=== PATIENT | male | born 1940 | race Caucasian/White ===

== ENCOUNTER 2016-12-15 11:15 | Outpatient (RCR) | payer MEDICARE, BC ==
[~2016-12-15 11:15] MED LIST: CIPRO500 MG PO; NORCO 325 MG-51 TAB PO; PERCOCET 325 MG1 TA2 PO; ZOCOR 10MG10 MG PO
== END 2016-12-21 | disposition home or self-care (01) ==
LOC: WSPT
DX: G20 Parkinson's disease (principal); G25.2 Other specified forms of tremor
CPT/HCPCS: G8978-GP; G8979-GP

== ENCOUNTER 2017-02-11 14:00 | Outpatient (RCR) | payer MEDICARE, BC | END 2017-02-12 10:46 | disposition home or self-care (01) | LOC: WSPT 14:00 | DX: G20 Parkinson's disease (principal) | CPT/HCPCS: G8979-GP; G8980-GP ==

== ENCOUNTER 2017-04-14 12:40 | Inpatient (IN) | payer MEDICARE, BC ==
[~2017-04-14] VITALS: Ht 184.8 cm; Wt 109.6 kg
[2017-05-23] MEDS ORDERED: ASPIRIN E.C. 8181 MG PO (09:50)
[2017-05-23] MEDS ORDERED: MASON NATURAL2000 IU PO (09:51)
[2017-05-23] MEDS ORDERED: VITAMIN C500 MG PO (09:52)
[2017-05-23] MEDS ORDERED: OMEGA-3 FISH1000 MG PO (09:52)
[2017-05-23] MEDS ORDERED: B-12 500 MCG PO (09:53)
[2017-05-23] MEDS ORDERED: SINEMET 25/101 UDTAB PO (09:53)
[2017-05-24] VITALS (11 sets, daily range): BP systolic 105–145; BP diastolic 49–84; PULSE 52–80; TEMP 97.8–98.2
[2017-05-25] VITALS: BP 158/77; PULSE 81; TEMP 97.8
[2017-05-25 04:46] VITALS: BP 133/74; PULSE 69; TEMP 98.2
[2017-05-25] MEDS ORDERED: XARELTO10 MG PO (06:21)
[2017-05-25] MEDS ORDERED: NORCO 325 MG-7.1 TAB PO (06:22)
[2017-05-25] MEDS ORDERED: CELEBREX 200MG200 MG PO (06:22)
[2017-05-25] MEDS ORDERED: ULTRAM 50MG TAB50 MG PO (06:22)
[2017-05-25 06:33] LABS: HEMATOCRIT 28.6 % (42.0-52.0); HEMOGLOBIN 9.9 g/dl (13.5-18.0)
[2017-05-25 07:47] VITALS: BP 135/62; PULSE 68; TEMP 97.6
[2017-05-25 11:18] VITALS: BP 103/53; PULSE 63
[2017-05-25 16:14] VITALS: BP 107/59; PULSE 75; TEMP 97.5
[2017-05-25 19:45] VITALS: BP 107/59; PULSE 62; TEMP 97.5
[2017-05-26 04:23] VITALS: BP 100/56; PULSE 63; TEMP 97.6
[2017-05-26 06:56] LABS: HEMATOCRIT 26.1 % (42.0-52.0); HEMOGLOBIN 8.8 g/dl (13.5-18.0)
[2017-05-26 07:33] VITALS: BP 118/54; PULSE 69; TEMP 99.4
[2017-05-26 11:53] VITALS: BP 108/57; PULSE 73; TEMP 98.3
[2017-05-26 15:39] VITALS: BP 102/49; PULSE 69; TEMP 97.9
[2017-05-26 19:56] VITALS: BP 104/49; PULSE 74; TEMP 98.4
[2017-05-27 04:03] VITALS: BP 94/54; PULSE 66; TEMP 98.7
[2017-05-27 07:13] VITALS: BP 116/67; PULSE 70; TEMP 99.3
== END 2017-05-27 10:40 | DRG 470 ==
LOC: JCC 05-24 05:24
PROVIDERS: Orthopaedic Surgery
PROC: 0SRD0J9 Replacement of Left Knee Joint with Synthetic Substitute, Cemented, Open Approach (ICD-10-PCS; principal; 2017-05-24 07:30)
DX: M17.12 Unilateral primary osteoarthritis, left knee (principal); Z96.651 Presence of right artificial knee joint
CPT/HCPCS: A4315; A9284; C1713; C1776; J0690; J1100; J1200; J1885; J2250; J2270; J2405; J2704; J3010; J7120

== ENCOUNTER → 2017-04-19 | Outpatient (CLI) | payer MEDICARE, BC ==
[~2017-04-19] MED LIST changes: +ASPIRIN E.C. 8181 MG PO; +B-12 500 MCG PO; +CELEBREX 200MG200 MG PO; +MASON NATURAL2000 IU PO; +NORCO 325 MG-7.1 TAB PO; +OMEGA-3 FISH1000 MG PO; +SINEMET 25/101 UDTAB PO; +ULTRAM 50MG TAB50 MG PO; +VITAMIN C500 MG PO; +XARELTO10 MG PO
== END ==
LOC: COL.RAD 08:15
DX: M17.12 Unilateral primary osteoarthritis, left knee (principal); Z96.652 Presence of left artificial knee joint

== ENCOUNTER 2017-05-21 09:51 | Outpatient (RCR) | payer MEDICARE, BC ==
[~2017-05-21 09:51] MED LIST changes: -ASPIRIN E.C. 8181 MG PO; -B-12 500 MCG PO; -CELEBREX 200MG200 MG PO; -MASON NATURAL2000 IU PO; -NORCO 325 MG-7.1 TAB PO; -OMEGA-3 FISH1000 MG PO; -SINEMET 25/101 UDTAB PO; -ULTRAM 50MG TAB50 MG PO; -VITAMIN C500 MG PO; -XARELTO10 MG PO
[2017-05-23] MEDS ORDERED: ASPIRIN E.C. 8181 MG PO (09:50)
[2017-05-23] MEDS ORDERED: MASON NATURAL2000 IU PO (09:51)
[2017-05-23] MEDS ORDERED: VITAMIN C500 MG PO (09:52)
[2017-05-23] MEDS ORDERED: OMEGA-3 FISH1000 MG PO (09:52)
[2017-05-23] MEDS ORDERED: B-12 500 MCG PO (09:53)
[2017-05-23] MEDS ORDERED: SINEMET 25/101 UDTAB PO (09:53)
[2017-05-25] MEDS ORDERED: XARELTO10 MG PO (06:21)
[2017-05-25] MEDS ORDERED: CELEBREX 200MG200 MG PO (06:22)
[2017-05-25] MEDS ORDERED: NORCO 325 MG-7.1 TAB PO (06:22)
[2017-05-25] MEDS ORDERED: ULTRAM 50MG TAB50 MG PO (06:22)
== END 2017-05-27 13:55 | disposition home or self-care (01) ==
LOC: WSPT 09:51
DX: Z01.818 Encounter for other preprocedural examination (principal); M17.12 Unilateral primary osteoarthritis, left knee
CPT/HCPCS: G8978-GP; G8979-GP; G8980-GP

== ENCOUNTER 2017-08-04 10:30 | Outpatient (RCR) | payer MEDICARE, BC ==
[~2017-08-04 10:30] MED LIST changes: +ASPIRIN E.C. 8181 MG PO; +B-12 500 MCG PO; +CELEBREX 200MG200 MG PO; +MASON NATURAL2000 IU PO; +NORCO 325 MG-7.1 TAB PO; +OMEGA-3 FISH1000 MG PO; +SINEMET 25/101 UDTAB PO; +ULTRAM 50MG TAB50 MG PO; +VITAMIN C500 MG PO; +XARELTO10 MG PO
== END 2017-08-05 16:03 ==
LOC: WSPT 10:30
DX: Z96.652 Presence of left artificial knee joint (principal)
CPT/HCPCS: G8978-GP; G8979-GP; G8980-GP

== ENCOUNTER → 2018-01-03 | Outpatient (CLI) | payer MEDICARE, BC ==
[~2018-01-03] VITALS: Ht 184.8 cm; Wt 107.7 kg
[~2018-01-03] MED LIST changes: +NEURONTIN100 MG/CAP PO; +STOOL SOFTENER100 M2 PO
[2018-01-03 12:59] VITALS: BP 140/82; PULSE 95
[2018-01-03 14:42] VITALS: BP 126/76; PULSE 63
== END ==
LOC: COL.RAD 12:30
DX: M47.26 Other spondylosis with radiculopathy, lumbar region (principal); M48.061 Spinal stenosis, lumbar region without neurogenic claudication
CPT/HCPCS: G9654; J2704

== ENCOUNTER 2018-02-02 10:45 | Outpatient (RCR) | payer MEDICARE, BC | END 2018-02-07 08:52 | disposition home or self-care (01) | LOC: MKS.ESL.PT 10:45 | DX: G62.9 Polyneuropathy, unspecified (principal); M54.17 Radiculopathy, lumbosacral region; R20.0 Anesthesia of skin; R20.2 Paresthesia of skin; Z96.652 Presence of left artificial knee joint | CPT/HCPCS: G8978-GP; G8979-GP; G8980-GP ==

== ENCOUNTER → 2018-02-08 | Outpatient (CLI) | payer MEDICARE, BC | LOC: MHCPAIN 12:21 | DX: G89.29 Other chronic pain (principal); M47.817 Spondylosis without myelopathy or radiculopathy, lumbosacral region; M54.16 Radiculopathy, lumbar region; M48.061 Spinal stenosis, lumbar region without neurogenic claudication | CPT/HCPCS: G0463 ==

== ENCOUNTER 2018-02-11 08:00 | Outpatient (RCR) | payer BC | END 2018-05-12 | disposition home or self-care (01) | LOC: MKS.ESL.PT | DX: G60.8 Other hereditary and idiopathic neuropathies (principal) ==

== ENCOUNTER → 2018-02-24 | Outpatient (CLI) | payer MEDICARE, BC | LOC: MHCPAIN 12:25 | DX: M47.27 Other spondylosis with radiculopathy, lumbosacral region (principal) | CPT/HCPCS: J1100; J2405; J3010; Q9967 ==

== ENCOUNTER 2018-03-01 10:30 | Outpatient (RCR) | payer MEDICARE, BC | END 2018-05-12 | disposition home or self-care (01) | LOC: MKS.ESL.PT | DX: G60.8 Other hereditary and idiopathic neuropathies (principal) | CPT/HCPCS: G8990-GP; G8991-GP; G8992-GP ==

== ENCOUNTER → 2018-03-09 | Outpatient (CLI) | payer MEDICARE, BC | LOC: MHCPAIN 09:58 | DX: G89.29 Other chronic pain (principal); M47.817 Spondylosis without myelopathy or radiculopathy, lumbosacral region; M48.061 Spinal stenosis, lumbar region without neurogenic claudication; M25.572 Pain in left ankle and joints of left foot | CPT/HCPCS: G0463 ==

== ENCOUNTER 2019-04-11 02:33 | Observation (INO) | payer MEDICARE, BC ==
[~2019-04-11] VITALS: Ht 182.9 cm; Wt 102.3 kg
[2019-04-11 05:10] LABS: COLLECTION METHOD CLEAN CATCH
[2019-04-11 05:16] LABS: MUCOUS Present /lpf; PH 5 (5-8); SQUAMOUS EPITHELIAL 0-2 /hpf; URINE APPEARANCE Clear; URINE BACTERIA None Seen /hpf; URINE BILIRUBIN Negative (NEGATIVE); URINE BLOOD 2+ (NEGATIVE); URINE COLOR Yellow; URINE GLUCOSE Negative (NEGATIVE); URINE KETONE Negative (NEGATIVE); URINE LEUKOCYTE ESTERASE Negative (NEGATIVE); URINE NITRATE Negative (NEGATIVE); URINE PROTEIN(semi-quant) Negative (NEGATIVE); URINE UROBILINOGEN Negative (NEGATIVE)
[2019-04-11 05:25] LABS: BASO % 0.3 % (0.0-2.0); EOS # 0.1 (0.0-0.7); EOS % 1.3 % (0-4.0); GRAN % 76.5 % (42.2-75.2); HEMOGLOBIN 12.3 g/dl (13.5-18.0); LYMPH % 13.2 % (20.0-51.0); MEAN CELL VOLUME 91 fl (80.0-100.0); MEAN CORPUSCULAR HEMOGLOBIN 31 pg (27.0-31.0); MEAN CORPUSCULAR HGB CONC 34 g/dl (33.0-37.0); MEAN PLATELET VOLUME 9.7 fl (7.4-10.4); MONO # 0.6 (0.1-0.6); MONO % 8.2 % (1.7-9.3); PLATELET COUNT 124 K/mm3 (130-400); RED BLOOD COUNT 4.02 M/mm3 (4.20-5.60); REDCELL DISTRIBUTION WIDTH-CV 13.7 % (11.5-14.5)
[2019-04-11 05:26] LABS: HEMATOCRIT 36.4 % (42.0-52.0)
[2019-04-11 05:40] LABS: BILIRUBIN,TOTAL 0.7 mg/dL (0.0-1.0); CALCIUM 9.5 mg/dL (8.4-10.2); CREATININE, serum 0.77 (0.66-1.25); POTASSIUM 3.9 mmol/L (3.4-5.0)
[2019-04-11 06:06] VITALS: BP 149/71; PULSE 73; TEMP 98.2
--- NOTE | 2019-04-11 06:20 | NUR ---
Admitted to medical floor from ER- VSS, alert/oriented- states back pain 04/03-was just given 2 [place] in ER before arriving on floor- INT to left hand. O2 at 2L/nc.
[2019-04-11 08:34] VITALS: BP 117/72; PULSE 58; TEMP 97.6
--- NOTE | 2019-04-11 11:12 | NUR ---
SW attended clinical rounds to discuss discharge planning. Patient lives at home with his . Patient's PCP is Dr Barroso and he obtains prescriptions from [facility]. Patient uses a cane PRN and he does not use home health services. Patient does have a DPOA. Patient will be seen by PT and OT. Patient will likely require home health services upon discharge. SW will follow up with patient about home health options after he is seen by PT and OT.
[2019-04-11 12:56] VITALS: BP 120/90; PULSE 68; TEMP 98.4
--- NOTE | 2019-04-11 14:31 | NUR ---
SW met with patient about home health options. SW provided medicare.gov resource list. Patient chose [facility]. SW will fax referral.
--- NOTE | 2019-04-11 15:09 | NUR ---
Pt resting, has been up in the recliner and returned to bed, Pt needs stand-by assistance to the restroom, not completly steady on his feet and has C/O weakness. Pt has received both PRN norco and flexeril for pain and spasm relief. Initial assessments complete.
[2019-04-11 16:32] VITALS: BP 128/70; PULSE 62; TEMP 97.6
--- NOTE | 2019-04-11 17:55 | NUR ---
Pt has been resting in the room, has C/O pain that is minimally relieved with ordered pain and muscle relaxant medications, Pt has been up to the restroom during the day with minimal assistance.
--- NOTE | 2019-04-11 19:30 | NUR ---
Shift assessment complete. Pt in bedside recliner et assisted to back to bed at this time. Pt awake, a&o, cooperative c cares. Pt c/o continued back pain rated "8/10"; provided c PRN Bethel et Flexeril per pt/wi request. Pt denies other needs. INT patent. Call light in reach, bed alarm on. Will monitor.
[2019-04-11 19:42] VITALS: BP 106/52; PULSE 74; TEMP 97.7
[2019-04-11] MEDS ORDERED: ATIVAN 0.50.5 MG/TAB PO (22:46)
[2019-04-11] MEDS ORDERED: AMBIEN 10MG10 MG PO (22:47)
[2019-04-11] MEDS ORDERED: ATROPINE 2 ML2 ML PO (22:59)
[2019-04-11] MEDS ORDERED: ZOLOFT 50MG50 MG PO (22:59)
[2019-04-11] MEDS ORDERED: NEUPRO1 MG/24 HR TD (23:01)
[2019-04-11] MEDS ORDERED: RYTARY1 CE2 PO (23:02)
[2019-04-11 23:39] VITALS: BP 117/64; PULSE 65; TEMP 98.4
[2019-04-12 02:55] VITALS: BP 132/81; PULSE 54; TEMP 97.5
--- NOTE | 2019-04-12 05:32 | NUR ---
Pt resting in bed, condition unchanged. Pt has had cont c/o back pain int this shift. Moderately well controlled c current medications. Pt has amb in room et to BR c min assist. No needs at this time. Call light in reach.
--- NOTE | 2019-04-12 06:45 | NUR ---
Received report from JAMES Queen.
[2019-04-12 07:15] VITALS: BP 107/63; PULSE 59; TEMP 97.4
--- NOTE | 2019-04-12 08:33 | NUR ---
Pt sitting up in recliner, some C/O lower back pain, shift assessments complete, left Pt call light in reach.
--- NOTE | 2019-04-12 09:30 | NUR ---
Patient will discharge home today with home health services through [facility] (PT, OT, and fci). SW will fax discharge orders.
[2019-04-12] MEDS ORDERED: COLACE 100100 MG/CAP PO (09:48)
[2019-04-12] MEDS ORDERED: VITAMIN C500 MG PO (09:49)
[2019-04-12] MEDS ORDERED: NORCO 325 MG-51 TAB PO (09:56)
[2019-04-12] MEDS ORDERED: TYLENOL 500MG500 MG PO (09:56)
--- NOTE | 2019-04-12 12:30 | NUR ---
Pt discharged to home, escorted to [place] emergency department and transported by private auto.
== END 2019-04-12 12:30 | disposition home or self-care (01) ==
LOC: COL.ER 02:33 → MEDICAL 05:05
PROVIDERS: Emergency Medicine; ADMIT Internal Medicine
DX: R53.81 Other malaise (principal); M54.5 Low back pain; G20 Parkinson's disease; F32.9 Major depressive disorder, single episode, unspecified; Z96.653 Presence of artificial knee joint, bilateral; Z85.72 Personal history of non-Hodgkin lymphomas
CPT/HCPCS: 99239; G0378; J3010

== ENCOUNTER 2019-06-06 07:50 | Day surgery (SDC) | payer MEDICARE, BC ==
[~2019-06-06] VITALS: Ht 182.9 cm; Wt 95.5 kg
[~2019-06-06 07:50] MED LIST changes: +AMBIEN 10MG10 MG PO; +ATIVAN 0.50.5 MG/TAB PO; +ATROPINE 2 ML2 ML PO; +COLACE 100100 MG/CAP PO; +NEUPRO1 MG/24 HR TD; +RYTARY1 CE2 PO; +TYLENOL 500MG500 MG PO; +ZOLOFT 50MG50 MG PO
[2019-06-06] MEDS ORDERED: SINEMET 25/101 UDTAB PO (08:40)
[2019-06-06 08:56] VITALS: BP 127/80; PULSE 78; TEMP 98.8
[2019-06-06 09:50] VITALS: BP 130/88; PULSE 88; TEMP 98.4
--- NOTE | 2019-06-06 10:00 | NUR ---
Pt returned via cart to GI bay 4. Pt drowsy but able to ambulate to recliner in bay. Jurgen from Radiology present to take pt for BE procedure since the colonoscopy was unsuccessful. VSS-see flowsheet. Pt taken via wheelchair at this time to radiology by Jurgen.
--- NOTE | 2019-06-06 11:05 | NUR ---
Pt returned with Rad staff Jurgen, via wheelchair. A&O. To void then returned to recliner. present. Pt given cup of coffee per request. Denied complaints or other needs.
[2019-06-06 11:20] VITALS: BP 136/96; PULSE 88
--- NOTE | 2019-06-06 12:00 | NUR ---
Pt was up to bathroom numerous times since procedure. Given personal cleansing wipes and a brief for comfort. Discharge teaching completed, pt and verbalized understanding. Pt taken via wheelchair to private vehicle for dc home with to drive. Sent with dc instruction packet.
== END 2019-06-06 12:00 | disposition home or self-care (01) ==
LOC: SDCO 07:50
DX: K57.30 Diverticulosis of large intestine without perforation or abscess without bleeding (principal); K64.0 First degree hemorrhoids; G20 Parkinson's disease; G62.9 Polyneuropathy, unspecified; M19.90 Unspecified osteoarthritis, unspecified site; Z96.652 Presence of left artificial knee joint; Z86.010 Personal history of colon polyps; Z80.0 Family history of malignant neoplasm of digestive organs
CPT/HCPCS: J2001; J2250; J2704; J7030

== ENCOUNTER → 2019-09-18 | Outpatient (CLI) | payer MEDICARE, BC ==
[~2019-09-18] MED LIST changes: +ASPIRIN 81M81 MG/TA2 PO; +LIPITOR 40MG TA40 MG PO
== END ==
LOC: COL.VAS 09:00
DX: I34.0 Nonrheumatic mitral (valve) insufficiency (principal); R60.9 Edema, unspecified; I51.7 Cardiomegaly

== ENCOUNTER 2021-01-10 09:23 | Inpatient (IN) | payer MEDICARE, BC ==
[~2021-01-10] VITALS: Ht 185.4 cm; Wt 85.5 kg
[~2021-01-10 09:23] MED LIST changes: -ATROPINE 2 ML2 ML PO; +ATROPINE 2 ML2 ML SL
[2021-01-10] MEDS ORDERED: EFFEXOR 75M75 MG/TAB PO (11:51)
[2021-01-10 13:45] VITALS: BP 111/64; PULSE 81; TEMP 97.9
[2021-01-10 15:44] VITALS: BP 111/66; PULSE 82; TEMP 97.6
--- NOTE | 2021-01-10 18:32 | NUR ---
Patient doing well since up from ER. Spouse at bedside. Head lac with estuardo intact, having minimal bloody drainage. Patient up to recliner this afternoon with x1 assist. Family and patient oriented to visitor policy. Ativan given this afternoon for agitation. Tele in place. INT to left hand. Lidocain patch to lower back. Denies further needs at this time. Will report off to night warehouse manager.
[2021-01-10 21:15] VITALS: BP 93/63; PULSE 67; TEMP 97.5
--- NOTE | 2021-01-10 23:02 | NUR ---
PT SETTING UP IN BED EATING DINNER AT SHIFT CHANGE. PT HAS [place] AND NEEDED MINIM ASST TO SET UP. REMAINED AT BEDSIDE UNTIL VISIT HOURS OVER. REPORTS BACK/LEG PAIN. NORCO GAVE. ALONG W PRN ATIVAN FOR AGGITATION INCREASED MORE AT NIGHT PER . WANTS LIGHT UP. DOOR OPEN. BED ALARMED.
[2021-01-11] VITALS (8 sets, daily range): BP systolic 86–134; BP diastolic 57–81; PULSE 63–98; TEMP 97.3–98.1
--- NOTE | 2021-01-11 04:56 | NUR ---
pt restless overnight often will need to void using urinal but dribbles scant to small each time. tx pain and aniexty x 2 overnight. Wants to set up on bed and let feet dangle. Done while in room yet pt is a fall risk. Light w in reach and bed alarm exit on. Breif dry, oral care and repositioned this am.
[2021-01-11 05:57] LABS: HEMATOCRIT 37.9 % (42.0-52.0); HEMOGLOBIN 12.7 g/dl (13.5-18.0); MEAN CELL VOLUME 91 fl (80.0-100.0); MEAN CORPUSCULAR HEMOGLOBIN 31 pg (27.0-31.0); MEAN CORPUSCULAR HGB CONC 34 g/dl (33.0-37.0); MEAN PLATELET VOLUME 11.2 fl (7.4-10.4); PLATELET COUNT 128 K/mm3 (130-400); RED BLOOD COUNT 4.17 M/mm3 (4.20-5.60); REDCELL DISTRIBUTION WIDTH-CV 13.3 % (11.5-14.5)
[2021-01-11 06:03] LABS: CALCIUM 9.4 mg/dL (8.4-10.2); CREATININE, serum 0.8 (0.66-1.25)
--- NOTE | 2021-01-11 11:07 | NUR ---
Assessment complete. Patient laying in bed with eyes closed. While speaking to patient he states "please dont speak so loudly". Patient was responsive to all my questions and took his PO medications well with sips of water. Patient was repositioned multiple times in order to make him comfortable. IV site is CD&I. Patient was oriented to place, self, and month but not the year. Fall precautions are in place. Continuing to monitor. Call light is in reach.
[2021-01-11 12:30] LABS: MAGNESIUM 1.8 mg/dL (1.6-2.3)
[2021-01-11 13:02] LABS: TSH w REFLEX 1.76 uIU/mL (0.465-4.680)
[2021-01-11 14:43] LABS: INR 1.1 (0.8-3.0); PROTHROMBIN TIME 12.7 SECONDS (9.7-12.8)
[2021-01-11 14:46] LABS: PARTIAL THROMBOPLASTIN TIME 29.1 SECONDS (26.0-37.0)
[2021-01-11 14:46] LABS: COLLECTION METHOD CLEAN CATCH
--- NOTE | 2021-01-11 15:00 | NUR ---
Plan home vs SNF [facility]. [facility] has accepted patient. SW met with about care. reports that they reside independently and have skilled care coming in the home MWF and alternate services on wednesday and . reports that she would prefer patient to b home however he has had a recent fall and concerned with car support. is Ramona [phone] or [phone]. indicated that she has the DPOA PPW, Will need a copy. Patient is reported to use a lift chair, urinal, walker sit to stand and 02 from breath easy, O2 liters unknown. Dr. Cortés is alternate specialist. Awaiting PT/OT/ RT for assessments to send to [facility]. Spoke with Nilesh Villar at [facility] and Patient is accepted for a skilled stay. Will need to continue to send updates until DC.
[2021-01-11 15:06] LABS: MUCOUS Present /lpf; PH 5 (5-8); SQUAMOUS EPITHELIAL 0-2 /hpf; URINE APPEARANCE Hazy; URINE BACTERIA None Seen /hpf; URINE BILIRUBIN Negative (NEGATIVE); URINE BLOOD Negative (NEGATIVE); URINE COLOR Yellow; URINE GLUCOSE Negative (NEGATIVE); URINE KETONE Trace (NEGATIVE); URINE LEUKOCYTE ESTERASE Negative (NEGATIVE); URINE NITRATE Negative (NEGATIVE); URINE PROTEIN(semi-quant) Negative (NEGATIVE)
--- NOTE | 2021-01-11 17:51 | NUR ---
Patient has had an uneventful shift. He slept most of he day, was at the bed side concerned due to his drowsiness. Patient is now awake nd alert and is at ease. Patient is sitting up eating dinner with the help of his at this time. Patient used the urinal to void through the day with no issues. Heparin drip has been initiated and is currently running at 15.5 ml/hr per protocol. Continuing to monitor patient. Call light is in reach. Bed alarm is set.
--- NOTE | 2021-01-11 22:01 | NUR ---
HEPARIN DRIP STOPPED AT THIS TIME DUE TO HEP XA LEVEL 1.24
[2021-01-12] VITALS (7 sets, daily range): BP systolic 87–118; BP diastolic 56–72; PULSE 62–91; TEMP 97.5–97.8
--- NOTE | 2021-01-12 00:51 | NUR ---
HEPARIN DRIP RESTARTED AT THIS TIME
[2021-01-12 07:05] LABS: BASO % 0.6 % (0.0-2.0); EOS # 0.1 (0.0-0.7); GRAN # 2.9 (1.4-6.5); GRAN % 57.1 % (42.2-75.2); HEMOGLOBIN 12.2 g/dl (13.5-18.0); LYMPH # 1.6 (1.2-3.4); LYMPH % 30.6 % (20.0-51.0); MEAN CELL VOLUME 90 fl (80.0-100.0); MEAN CORPUSCULAR HEMOGLOBIN 30 pg (27.0-31.0); MEAN CORPUSCULAR HGB CONC 33 g/dl (33.0-37.0); MEAN PLATELET VOLUME 10.9 fl (7.4-10.4); MONO # 0.5 (0.1-0.6); MONO % 9.7 % (1.7-9.3); PLATELET COUNT 131 K/mm3 (130-400); RED BLOOD COUNT 4.05 M/mm3 (4.20-5.60); REDCELL DISTRIBUTION WIDTH-CV 13.2 % (11.5-14.5)
[2021-01-12 07:08] LABS: HEMATOCRIT 36.5 % (42.0-52.0)
[2021-01-12 07:12] LABS: CALCIUM 9.5 mg/dL (8.4-10.2); CREATININE, serum 0.83 (0.66-1.25); MAGNESIUM 1.7 mg/dL (1.6-2.3); POTASSIUM 4.2 mmol/L (3.4-5.0)
--- NOTE | 2021-01-12 08:06 | NUR ---
Assessment complete. Patient awake on entry requesting to use the urinal, urinal provided pt voided approx 50ml. Patient states that he is miserable at this time, pain pill offered, pt states he would like it. PRN norco provided. Patient was repositioned , lidocaine patch applied to lower back. IV site infusing without issue, minor leakage of blood, site was undressed, cleaned and redressed at this time. Patient was assisted with ordering breakfast. Patient is now resting. Will continue to monitor. Call light is in reach. Bed alarm is set.
--- NOTE | 2021-01-12 08:37 | NUR ---
External male catheter applied to pt at this time in an effort to help with frequent small amounts of urination. Patient agreed and tolerated application well. PAtient no resting.
--- NOTE | 2021-01-12 11:32 | NUR ---
Records updates were faxed to [facility]. Abimbola requested a TLSO back brace be ordered for patient and it was done through [facility] previously. SW contacted [facility] for specific information needed for a script. Information was given to Abimbola who wrote the script for this SW. Script was faxed to [facility]. ([phone]). Fred did not have oxidation engineer opttion. Please follow up Saturday 01/13.
--- NOTE | 2021-01-12 17:42 | NUR ---
Patient has had a good shift. No complaints of pain or discomfort since this morning. PAtient has been repositioned multiple times which helps to keep him comfortable. Head lac remains CD&I at this time, open to air, estuardo in place. Strickland catheter in place draining clear yellow urine at this time. Continuing to monitor. Call light is in reach.
--- NOTE | 2021-01-12 20:40 | NUR ---
Assessment complete. Pt is alert but conversationally confused. Denies having any pain at this time. Pt is sitting up in the bed watching TV and he denies further needs. Call light within reach.
[2021-01-13 03:51] VITALS: BP 111/76; PULSE 78; TEMP 97.6
[2021-01-13 06:17] LABS: BASO % 0.3 % (0.0-2.0); EOS # 0.1 (0.0-0.7); EOS % 1.6 % (0-4.0); GRAN # 4.4 (1.4-6.5); GRAN % 68.9 % (42.2-75.2); HEMOGLOBIN 12.2 g/dl (13.5-18.0); LYMPH # 1.3 (1.2-3.4); LYMPH % 19.5 % (20.0-51.0); MEAN CELL VOLUME 90 fl (80.0-100.0); MEAN CORPUSCULAR HEMOGLOBIN 31 pg (27.0-31.0); MEAN CORPUSCULAR HGB CONC 34 g/dl (33.0-37.0); MEAN PLATELET VOLUME 11.7 fl (7.4-10.4); MONO # 0.6 (0.1-0.6); MONO % 9.4 % (1.7-9.3); PLATELET COUNT 116 K/mm3 (130-400); RED BLOOD COUNT 3.99 M/mm3 (4.20-5.60); REDCELL DISTRIBUTION WIDTH-CV 13.2 % (11.5-14.5)
[2021-01-13 06:25] LABS: CALCIUM 9.3 mg/dL (8.4-10.2); CREATININE, serum 0.81 (0.66-1.25); POTASSIUM 3.9 mmol/L (3.4-5.0)
[2021-01-13 07:53] VITALS: BP 99/67; PULSE 81; TEMP 97.8
--- NOTE | 2021-01-13 10:56 | NUR ---
PATIENT IS ALERT AND VERY TIRED; ANSWERS APPROPRIATELY. HAS N/C PAIN.
[2021-01-13 11:37] VITALS: BP 106/70; PULSE 78; TEMP 98.4
--- NOTE | 2021-01-13 11:37 | NUR ---
INDWELLING CATHETER REMOVED AND EXERNAL MALE CATHETER APPLIED. TOLERATED PROCEDUER WELL.
[2021-01-13] MEDS ORDERED: TYLENOL 325MG325 MG PO (12:25)
[2021-01-13] MEDS ORDERED: BLUE-EMU LIDOC1 EACH TP (12:27)
[2021-01-13] MEDS ORDERED: ATIVAN 0.50.5 MG/TAB PO (12:30)
[2021-01-13] MEDS ORDERED: ELIQUIS 2.5 PO (12:31)
[2021-01-13] MEDS ORDERED: DOXYCYCLINE 10100 MG PO (12:34)
[2021-01-13] MEDS ORDERED: MELATIN 3 MG-11 TAB PO (12:35)
[2021-01-13 13:31] VITALS: BP 106/70; PULSE 78; TEMP 98.4
--- NOTE | 2021-01-13 13:54 | NUR ---
Patient ready to be discharged today. MARLENA faxed clinical updates to Susana at [facility] who advised they are ready to accept today. MARLENA contacted patient's , Ramona to review discharge plan. Ramona verbalized understanding and is agreeable to SNF stay at [facility]. MARLENA set transport time for 1430 and provided transport time to patient's and JAMES Hartmann. MARLENA faxed discharge orders and negative COVID test to Susana at [facility]. MARLENA contacted Loren at the [facility] about arranging for back brace. Loren needs to coordinate this with staff at [facility]. MARLENA notified Susana at [facility] who will follow up.
== END 2021-01-13 15:00 | DRG 551 ==
LOC: COL.ER 09:23 → MEDICAL 11:43
PROVIDERS: Physician Assistant; ADMIT Student in an Organized Health Care Education/Training Program
DX: S32.019A Unspecified fracture of first lumbar vertebra, initial encounter for closed fracture (principal); J18.9 Pneumonia, unspecified organism; S32.049A Unspecified fracture of fourth lumbar vertebra, initial encounter for closed fracture; F41.9 Anxiety disorder, unspecified; G20 Parkinson's disease; I48.91 Unspecified atrial fibrillation; R06.02 Shortness of breath; Z96.653 Presence of artificial knee joint, bilateral; Z20.822 Contact with and (suspected) exposure to COVID-19; Z79.82 Long term (current) use of aspirin; W19.XXXA Unspecified fall, initial encounter
CPT/HCPCS: OP; 99222-AI; 99232-AI; 99239; G0378; J0456; J0696; J1644; J1650; J2060; J2405; J7050; Q9967

== ENCOUNTER → 2021-01-16 | Outpatient (REF) ==
[~2021-01-16] MED LIST changes: +AMOXICILLIN 8751 TAB PO; +ASPERCREME1 EACH TP; +ATIVAN 1MG T1 MG/TAB PO; +ATROPINE 2 ML2 ML OU; +BLUE-EMU LIDOC1 EACH TP; +CIPRO 500MG TA500 MG PO; +DEBROX OT; +DOXYCYCLINE 10100 MG PO; +EFFEXOR 75M75 MG/TAB PO; +ELIQUIS 2.5 PO; +FOSAMAX 70MG TA70 MG PO; +GENTLE LAXATIVE10 MG RC; +IMODIUM 2MG CAPS2 MG PO; +MELATIN 3 MG-11 TAB PO; +MILK OF MA400 MG/52 PO; +MIRALAX PA17 GM/Dose PO; +MYLANTA MAXIMU355 M1 PO; +PROBIOTIC ACID1 EAC3 PO; +TYLENOL 325MG325 MG PO; +TYLENOL SU650 MG/SUP RC; +ZINC OXIDE56.7 GM TP
[2021-01-16 11:55] LABS: COLLECTION METHOD CATHETER
[2021-01-16 12:06] LABS: BASO % 0.3 % (0.0-2.0); EOS # 0.1 (0.0-0.7); GRAN # 5.1 (1.4-6.5); GRAN % 70.9 % (42.2-75.2); HEMOGLOBIN 12.3 g/dl (13.5-18.0); LYMPH # 1.1 (1.2-3.4); LYMPH % 15.8 % (20.0-51.0); MEAN CELL VOLUME 90 fl (80.0-100.0); MEAN CORPUSCULAR HEMOGLOBIN 30 pg (27.0-31.0); MEAN CORPUSCULAR HGB CONC 33 g/dl (33.0-37.0); MEAN PLATELET VOLUME 11.7 fl (7.4-10.4); MONO # 0.8 (0.1-0.6); MONO % 11.7 % (1.7-9.3); PLATELET COUNT 144 K/mm3 (130-400); RED BLOOD COUNT 4.09 M/mm3 (4.20-5.60); REDCELL DISTRIBUTION WIDTH-CV 12.8 % (11.5-14.5)
[2021-01-16 12:07] LABS: HEMATOCRIT 36.9 % (42.0-52.0)
[2021-01-16 12:10] LABS: ALBUMIN 4.1 gm/dL (3.5-5.0); BILIRUBIN,TOTAL 0.9 mg/dL (0.0-1.0); CALCIUM 9.8 mg/dL (8.4-10.2); CREATININE, serum 0.8 (0.66-1.25); POTASSIUM 4.3 mmol/L (3.4-5.0); TOTAL PROTEIN 6.7 gm/dL (6.4-8.2)
[2021-01-16 12:15] LABS: AMORPHOUS CRYSTAL Present /uL; MUCOUS Present /lpf; PH 5 (5-8); SQUAMOUS EPITHELIAL None Seen /hpf; URINE APPEARANCE Cloudy; URINE BACTERIA Moderate /hpf; URINE BILIRUBIN Negative (NEGATIVE); URINE BLOOD 3+ (NEGATIVE); URINE COLOR Amber; URINE GLUCOSE Negative (NEGATIVE); URINE KETONE Trace (NEGATIVE); URINE LEUKOCYTE ESTERASE 2+ (NEGATIVE); URINE NITRATE Negative (NEGATIVE); URINE PROTEIN(semi-quant) 2+ (NEGATIVE); URINE RBC >50 /hpf; URINE UROBILINOGEN >=4.0 mg/dL (NEGATIVE)
== END ==
LOC: ZCOL.LAB 11:54
PROVIDERS: Family Medicine
DX: R41.0 Disorientation, unspecified (principal)

== ENCOUNTER 2021-01-17 14:41 | Inpatient (IN) | payer MEDICARE, BC ==
[~2021-01-17] VITALS: Ht 188 cm; Wt 85.5 kg
[~2021-01-17 14:41] MED LIST changes: -AMOXICILLIN 8751 TAB PO; -ASPERCREME1 EACH TP; -ATIVAN 1MG T1 MG/TAB PO; -ATROPINE 2 ML2 ML OU; -CIPRO 500MG TA500 MG PO; -DEBROX OT; -FOSAMAX 70MG TA70 MG PO; -GENTLE LAXATIVE10 MG RC; -IMODIUM 2MG CAPS2 MG PO; -MILK OF MA400 MG/52 PO; -MIRALAX PA17 GM/Dose PO; -MYLANTA MAXIMU355 M1 PO; -PROBIOTIC ACID1 EAC3 PO; -TYLENOL SU650 MG/SUP RC; -ZINC OXIDE56.7 GM TP
[2021-01-17 15:10] LABS: BASO % 0.3 % (0.0-2.0); EOS # 0.1 (0.0-0.7); EOS % 0.9 % (0-4.0); GRAN # 4.9 (1.4-6.5); GRAN % 71.9 % (42.2-75.2); HEMOGLOBIN 11.1 g/dl (13.5-18.0); LYMPH % 14.8 % (20.0-51.0); MEAN CELL VOLUME 88 fl (80.0-100.0); MEAN CORPUSCULAR HEMOGLOBIN 30 pg (27.0-31.0); MEAN CORPUSCULAR HGB CONC 34 g/dl (33.0-37.0); MEAN PLATELET VOLUME 11.5 fl (7.4-10.4); MONO # 0.8 (0.1-0.6); MONO % 11.8 % (1.7-9.3); PLATELET COUNT 150 K/mm3 (130-400); RED BLOOD COUNT 3.72 M/mm3 (4.20-5.60)
[2021-01-17 15:11] LABS: HEMATOCRIT 32.6 % (42.0-52.0)
[2021-01-17 15:27] LABS: ARTERIAL BLD GAS TCO2 CT 23.2; ARTERIAL BLOOD GAS BASE EXCESS -1.6 (-2-2); ARTERIAL BLOOD GAS HCO3 22.2 meq/L (22-26); ARTERIAL BLOOD GAS PCO2 34.1 mmHg (35-45); ARTERIAL BLOOD GAS PO2 76.5 mmHg (80-100); ARTERIAL BLOOD GAS pH 7.43 (7.35-7.45)
[2021-01-17 15:27] LABS: AMORPHOUS CRYSTAL Present /uL; MUCOUS Present /lpf; PH 5 (5-8); SQUAMOUS EPITHELIAL None Seen /hpf; URINE APPEARANCE Turbid; URINE BACTERIA Rare /hpf; URINE BILIRUBIN Negative (NEGATIVE); URINE BLOOD 3+ (NEGATIVE); URINE COLOR Amber; URINE GLUCOSE Negative (NEGATIVE); URINE KETONE Negative (NEGATIVE); URINE LEUKOCYTE ESTERASE Negative (NEGATIVE); URINE NITRATE Negative (NEGATIVE); URINE PROTEIN(semi-quant) 2+ (NEGATIVE); URINE RBC >50 /hpf; URINE UROBILINOGEN Negative (NEGATIVE)
[2021-01-17 15:30] LABS: ALBUMIN 3.9 gm/dL (3.5-5.0); BILIRUBIN,TOTAL 0.9 mg/dL (0.0-1.0); CALCIUM 9.4 mg/dL (8.4-10.2); CREATININE, serum 1.1 (0.66-1.25); TOTAL PROTEIN 6.8 gm/dL (6.4-8.2)
[2021-01-17 15:50] LABS: COLLECTION METHOD CATHETER
--- NOTE | 2021-01-17 19:15 | NUR ---
Vancomycin Initial Dosing Pharmacy Note Ordering provider: ZEESHAN Indication/duration: PNA, 7 days LABS: SCr 1.1, CrCl~54, GFR 64 Recommendation: Will give Vancomycin 1.5 gm IV x1 loading dose, then Vancomycin 1.25 gm IV q12h. Pharmacy will continue to monitor and check a Vancomycin trough on 01/19/21. Loading dose: 1.5 grams Maintenance dose: 1.25 grams every 12 hours Trough goal: 15-20 ug/mL
[2021-01-17] MEDS ORDERED: CIPRO 500MG TA500 MG PO (20:59)
[2021-01-17] MEDS ORDERED: ASPERCREME1 EACH TP (21:01)
[2021-01-17] MEDS ORDERED: ATIVAN 1MG T1 MG/TAB PO (21:02)
[2021-01-17] MEDS ORDERED: TYLENOL SU650 MG/SUP RC (21:02)
[2021-01-17] MEDS ORDERED: ATROPINE 2 ML2 ML OU (21:03)
[2021-01-17] MEDS ORDERED: GENTLE LAXATIVE10 MG RC (21:03)
[2021-01-17] MEDS ORDERED: DEBROX OT (21:04)
[2021-01-17] MEDS ORDERED: FOSAMAX 70MG TA70 MG PO (21:04)
[2021-01-17] MEDS ORDERED: IMODIUM 2MG CAPS2 MG PO (21:05)
[2021-01-17] MEDS ORDERED: TYLENOL 325MG325 MG PO (21:06)
[2021-01-17] MEDS ORDERED: PROBIOTIC ACID1 EAC3 PO (21:08)
[2021-01-17] MEDS ORDERED: ZINC OXIDE56.7 GM TP (21:13)
[2021-01-17] MEDS ORDERED: MILK OF MA400 MG/52 PO (21:18)
[2021-01-17] MEDS ORDERED: MYLANTA MAXIMU355 M1 PO (21:18)
[2021-01-17 21:31] LABS: MAGNESIUM 1.6 mg/dL (1.6-2.3); PHOSPHOROUS 3.1 mg/dL (2.5-4.5)
[2021-01-17 21:49] LABS: TROPONIN-I < 0.012 ng/mL (0.000-0.035)
[2021-01-17 23:56] VITALS: BP 97/60; PULSE 77; TEMP 97.8
[2021-01-18] VITALS (7 sets, daily range): BP systolic 96–120; BP diastolic 55–76; PULSE 63–188; TEMP 97.5–98
--- NOTE | 2021-01-18 02:17 | NUR ---
2049- PT ADMIT FROM ER. NOT ALERT, NOT VERBAL. RESPONSE TO VOICE OR PAIN. NOT ABLE TO ANSWER ADMIT QUESTOINS. NOT AT BEDSIDE. NPO- TO DO BEDSIDE SWALLOW AND ADV DIET TOLERATE. NOT AWAKE OR ALERT ENOUGH TO DO. ORDERS RECIEVED AND INITATED. ASSESSMENT COMPLETE. UA AND RESP VIRAL COLLECTED. OLD HEAD LAC TO LEFT UPPER BACK FROM FALL FROM 01-10. ANTIBOTICS RUNNING. BED ALARM ON.
--- NOTE | 2021-01-18 06:06 | NUR ---
RESTED THROUGH THE NIGHT WITHOUT INCIDENT. FLETCHER BAG CHANGED FOR UROMETER, ACCURATE I/O. IV FLUIDS RUNNING. VANCO ORDERED FOR 6AM. NEED RIGHT DOSE PER PHARMACY TO MIX, WILL PASS THIS ONTO DAY SHIFT NURSE TO GIVE WHEN PHARMACY MIXES AND BRINGS UP. DID NOT DO BEDSIDE SWALLOW, NOT ALERT ENOUGH. ORAL CARE.
[2021-01-18 06:58] LABS: BASO % 0.4 % (0.0-2.0); EOS # 0.2 (0.0-0.7); EOS % 3.7 % (0-4.0); GRAN # 2.9 (1.4-6.5); GRAN % 59.2 % (42.2-75.2); LYMPH # 1.3 (1.2-3.4); LYMPH % 25.9 % (20.0-51.0); MEAN CELL VOLUME 92 fl (80.0-100.0); MEAN CORPUSCULAR HGB CONC 33 g/dl (33.0-37.0); MEAN PLATELET VOLUME 11.3 fl (7.4-10.4); MONO # 0.5 (0.1-0.6); MONO % 10.4 % (1.7-9.3); PLATELET COUNT 127 K/mm3 (130-400); RED BLOOD COUNT 3.08 M/mm3 (4.20-5.60); REDCELL DISTRIBUTION WIDTH-CV 13.2 % (11.5-14.5)
[2021-01-18 06:59] LABS: HEMATOCRIT 28.3 % (42.0-52.0); HEMOGLOBIN 9.3 g/dl (13.5-18.0); MEAN CORPUSCULAR HEMOGLOBIN 30 pg (27.0-31.0)
--- NOTE | 2021-01-18 08:10 | NUR ---
Shift assessment complete. Alert, oriented to self. Coarse tremors to BUE. Follows commands. Hand exhibits curator equal. Generalized weakness. Pupils sluggish to light. AM pills held d/t NPO pending swallow study. Denies needs. Bed alarm on and call light in reach.
--- NOTE | 2021-01-18 19:41 | NUR ---
Awake, alert, oreinted, reviewed plan of care and nightly activities- verbalized understanding, denies pain, requires x 2 assistance for moblility, tremors noted to bilateral upper extremities. Will continue to monitor.
[2021-01-19 03:34] VITALS: BP 148/81; PULSE 81; TEMP 97.8
[2021-01-19 06:26] LABS: CALCIUM 8.6 mg/dL (8.4-10.2); CREATININE, serum 0.75 (0.66-1.25); POTASSIUM 3.9 mmol/L (3.4-5.0)
[2021-01-19 06:27] LABS: BASO % 0.7 % (0.0-2.0); EOS # 0.2 (0.0-0.7); EOS % 5.7 % (0-4.0); GRAN # 2.4 (1.4-6.5); GRAN % 57.3 % (42.2-75.2); HEMATOCRIT 29.2 % (42.0-52.0); HEMOGLOBIN 9.6 g/dl (13.5-18.0); LYMPH # 1.1 (1.2-3.4); LYMPH % 25.4 % (20.0-51.0); MEAN CELL VOLUME 92 fl (80.0-100.0); MEAN CORPUSCULAR HEMOGLOBIN 30 pg (27.0-31.0); MEAN CORPUSCULAR HGB CONC 33 g/dl (33.0-37.0); MONO # 0.5 (0.1-0.6); MONO % 10.9 % (1.7-9.3); PLATELET COUNT 134 K/mm3 (130-400); RED BLOOD COUNT 3.19 M/mm3 (4.20-5.60); REDCELL DISTRIBUTION WIDTH-CV 13.2 % (11.5-14.5)
[2021-01-19 07:45] VITALS: BP 130/100; PULSE 147; TEMP 96
--- NOTE | 2021-01-19 08:15 | NUR ---
Shift assessment complete. A&Ox4 this AM. PERRLA. Follows commands. Muscle strength and hand software quality assurance specialist equal bilaterally. Heart rhythm irregular w/regular rate. Denies pain or SOA. Strickland w/clear yellow output. Call light in reach and bed alarm on.
--- NOTE | 2021-01-19 08:21 | NUR ---
Vancomycin Follow-up Pharmacy Note Current regimen: Vancomycin 1.25 gm IV q12h Vancomycin trough: 10.36 Adjustments: Will increase Vancomycin to 1.5 gm IV q12h. Pharmacy will continue to monitor and check a Vancomycin trough on 01/21/21.
[2021-01-19] MEDS ORDERED: AMOXICILLIN 8751 TAB PO (10:25)
[2021-01-19 11:17] VITALS: BP 106/57; PULSE 71; TEMP 98.1
--- NOTE | 2021-01-19 13:05 | NUR ---
MARLENA met with patient about DC. Patient reports that he is ready to return to [facility]. Patient reports that he is the skilled service side and his is his care support Ramona [phone], or [phone]. PCP is Dr. Morel and RX obtained at [facility]. Patient reports that he uses a walker and wheelchair depending on steadiness. Patient reports that his is DPOA. MARLENA worked with on DC and MARLENA faxed clinical PPW and DC to [facility]. [facility] declined DC and stated that they wanted the patient to have a swallow study in the hospital although patient could do this outpatient and is eating. The response was that patient needed more fluids because it did not change and request another CV test. [facility] wants another night stay with the swallow test before accepting. Educated patient and the doctor. Will revisit tomorrow.
[2021-01-19 15:30] VITALS: BP 125/70; PULSE 98; TEMP 98
--- NOTE | 2021-01-19 19:46 | NUR ---
Awake, alert, oriented to self, confusion noted, not impulsive, at bedside, fall precautions in place, updaed on plan of care, otto draining per gravity, will continue to monitor.
[2021-01-19 20:29] VITALS: BP 103/58; PULSE 69; TEMP 98.4
[2021-01-19 23:48] VITALS: BP 115/70; PULSE 58; TEMP 98
[2021-01-20 04:30] VITALS: BP 134/90; PULSE 76; TEMP 97.2
--- NOTE | 2021-01-20 07:03 | NUR ---
Patient resting in bed at this time. Patient requesting coffee. Patient denies any pain, discomfort, or further needs at this time. Fall percatutions in place. Call light within reach. Will continue to monitor.
[2021-01-20 08:14] VITALS: BP 132/69; PULSE 101; TEMP 98.7
--- NOTE | 2021-01-20 10:40 | NUR ---
Lining Maker faxed updates to Susana at [facility].
[2021-01-20 11:38] VITALS: BP 139/85; PULSE 99; TEMP 97.9
[2021-01-20] MEDS ORDERED: MIRALAX PA17 GM/Dose PO (13:45)
[2021-01-20 13:55] VITALS: BP 139/85; PULSE 99; TEMP 97.9
--- NOTE | 2021-01-20 14:20 | NUR ---
The patient is to tentatively discharge today, 01/20 to [facility]. The patient will be transported at 1445. The team and the patient's , Ramona were in agreenance. SW faxed discharge orders. There are no additional needs at this time.
--- NOTE | 2021-01-20 14:46 | NUR ---
Patient is waiting for pickup from [facility] at this time. Patient is A&O, vital signs stable. Patient is dressed. Will continue to monitor. Call light within reach. Fall percautions in place.
--- NOTE | 2021-01-20 16:55 | NUR ---
Speech therapy saw patient and recommended that he be on a mechanical soft diet. Therapist also recommended that ST be consulted at [facility]. [facility]OR[facility] Daily notified. Patient INT IV DC'd in right forearm. Catheter intact, no signs of phlebitis. 1500 ml emptied from patient's indwelling catheter. Patient dressed and prepped to be escorted out of the building. Upon dismissal patient's vital signs were stable. Blood pressure 139/85, Pulse 99, Respirations 18, SPO2 95%, Temp 97.9. Patient did not complain of any pain or discomfort at that time. Strickland catheter that was placed before arrival to facility, left in place. Patient denied any further needs. Patient A&O. Transfer report given to JAMES Machado at [facility].
== END 2021-01-20 14:45 | DRG 871 ==
LOC: COL.ER 14:41 → MEDICAL 17:16
PROVIDERS: Family Medicine; Nurse Practitioner Family
DX: A41.9 Sepsis, unspecified organism (principal); J18.9 Pneumonia, unspecified organism; N39.0 Urinary tract infection, site not specified; G93.40 Encephalopathy, unspecified; N17.9 Acute kidney failure, unspecified; F41.9 Anxiety disorder, unspecified; F32.9 Major depressive disorder, single episode, unspecified; I48.91 Unspecified atrial fibrillation; D64.9 Anemia, unspecified; G20 Parkinson's disease; K59.00 Constipation, unspecified; R09.02 Hypoxemia; Z20.822 Contact with and (suspected) exposure to COVID-19; E86.0 Dehydration; Z96.653 Presence of artificial knee joint, bilateral; Z79.01 Long term (current) use of anticoagulants
CPT/HCPCS: 99223-AI; 99232-AI; 99239; J1956; J2543; J3370; J7030; J7050; J7120

== ENCOUNTER → 2021-02-03 | Outpatient (REF) ==
[~2021-02-03] MED LIST changes: +AMOXICILLIN 8751 TAB PO; +ASPERCREME1 EACH TP; +ATIVAN 1MG T1 MG/TAB PO; +ATROPINE 2 ML2 ML OU; +CIPRO 500MG TA500 MG PO; +DEBROX OT; +FOSAMAX 70MG TA70 MG PO; +GENTLE LAXATIVE10 MG RC; +IMODIUM 2MG CAPS2 MG PO; +MILK OF MA400 MG/52 PO; +MIRALAX PA17 GM/Dose PO; +MYLANTA MAXIMU355 M1 PO; +PROBIOTIC ACID1 EAC3 PO; +TYLENOL SU650 MG/SUP RC; +ZINC OXIDE56.7 GM TP
[2021-02-03 15:01] LABS: COLLECTION METHOD CLEAN CATCH
[2021-02-03 15:13] LABS: BASO % 0.3 % (0.0-2.0); EOS # 0.1 (0.0-0.7); EOS % 1.4 % (0-4.0); GRAN # 5.1 (1.4-6.5); GRAN % 71.2 % (42.2-75.2); HEMATOCRIT 37.3 % (42.0-52.0); HEMOGLOBIN 12.3 g/dl (13.5-18.0); LYMPH # 1.2 (1.2-3.4); LYMPH % 16.5 % (20.0-51.0); MEAN CELL VOLUME 89 fl (80.0-100.0); MEAN CORPUSCULAR HEMOGLOBIN 29 pg (27.0-31.0); MEAN CORPUSCULAR HGB CONC 33 g/dl (33.0-37.0); MEAN PLATELET VOLUME 10.4 fl (7.4-10.4); MONO # 0.8 (0.1-0.6); MONO % 10.5 % (1.7-9.3); PLATELET COUNT 235 K/mm3 (130-400); RED BLOOD COUNT 4.21 M/mm3 (4.20-5.60); REDCELL DISTRIBUTION WIDTH-CV 13.2 % (11.5-14.5)
[2021-02-03 15:18] LABS: AMORPHOUS CRYSTAL Present /uL; MUCOUS Present /lpf; PH 5 (5-8); SQUAMOUS EPITHELIAL None Seen /hpf; URINE APPEARANCE Cloudy; URINE BACTERIA None Seen /hpf; URINE BILIRUBIN Negative (NEGATIVE); URINE BLOOD 3+ (NEGATIVE); URINE COLOR Amber; URINE GLUCOSE Negative (NEGATIVE); URINE KETONE Trace (NEGATIVE); URINE LEUKOCYTE ESTERASE Trace (NEGATIVE); URINE NITRATE Negative (NEGATIVE); URINE PROTEIN(semi-quant) 2+ (NEGATIVE); URINE RBC >50 /hpf; URINE UROBILINOGEN Negative (NEGATIVE)
[2021-02-03 15:38] LABS: ALBUMIN 3.7 gm/dL (3.5-5.0); BILIRUBIN,TOTAL 0.5 mg/dL (0.0-1.0); CALCIUM 9.6 mg/dL (8.4-10.2); CREATININE, serum 0.74 (0.66-1.25); POTASSIUM 4.8 mmol/L (3.4-5.0); TOTAL PROTEIN 6.5 gm/dL (6.4-8.2)
== END ==
LOC: ZCOL.LAB 14:59
PROVIDERS: Family Medicine
DX: R53.1 Weakness (principal); R53.81 Other malaise

== ENCOUNTER → 2021-08-26 | Outpatient (CLI) | payer MEDICARE, BC ==
[2021-08-26 18:48] LABS: BASO % 0.4 % (0.0-2.0); EOS # 0.1 K/mm3 (0.0-0.7); EOS % 2.6 % (0-4.0); GRAN # 2.9 K/mm3 (1.4-6.5); GRAN % 62.8 % (42.2-75.2); HEMOGLOBIN 11.4 g/dl (13.5-18.0); LYMPH # 1.2 K/mm3 (1.2-3.4); LYMPH % 25.1 % (20.0-51.0); MEAN CELL VOLUME 90 fl (80.0-100.0); MEAN CORPUSCULAR HEMOGLOBIN 29 pg (27.0-31.0); MEAN CORPUSCULAR HGB CONC 32 g/dl (33.0-37.0); MEAN PLATELET VOLUME 12.3 fl (7.4-10.4); MONO # 0.4 K/mm3 (0.1-0.6); MONO % 8.9 % (1.7-9.3); PLATELET COUNT 156 K/mm3 (130-400); RED BLOOD COUNT 3.96 M/mm3 (4.20-5.60); REDCELL DISTRIBUTION WIDTH-CV 14.6 % (11.5-14.5)
[2021-08-26 18:49] LABS: HEMATOCRIT 35.6 % (42.0-52.0)
[2021-08-26 18:59] LABS: CREATININE, serum 0.99 mg/dL (0.72-1.25); POTASSIUM 4.6 mmol/L (3.5-4.5)
== END ==
LOC: ZCOL.LAB 17:50
PROVIDERS: Internal Medicine
DX: R41.841 Cognitive communication deficit (principal)

== ENCOUNTER → 2022-04-21 | Outpatient (CLI) | payer MEDICARE, BC ==
[2022-04-21 21:20] LABS: COLLECTION METHOD CLEAN CATCH
[2022-04-21 21:45] LABS: MUCOUS Present (NOT PRESENT); PH 6 (5-8); SQUAMOUS EPITHELIAL 0-2 /hpf (0-10); URINE APPEARANCE Clear (CLEAR/HAZY); URINE BACTERIA None Seen /hpf (NONE SEEN); URINE BILIRUBIN Negative (NEGATIVE); URINE BLOOD Negative (NEGATIVE); URINE COLOR Yellow (YELLOW); URINE GLUCOSE Negative (NEGATIVE); URINE KETONE Trace (NEGATIVE); URINE LEUKOCYTE ESTERASE Negative (NEGATIVE); URINE NITRATE Negative (NEGATIVE); URINE PROTEIN(semi-quant) Negative (NEGATIVE); URINE RBC 0-2 /hpf (0-2); URINE UROBILINOGEN Negative (NEGATIVE); URINE WBC 0-2 /hpf (0-2)
== END ==
LOC: ZCOL.LAB 20:32
PROVIDERS: Internal Medicine
DX: N39.0 Urinary tract infection, site not specified (principal)

== ENCOUNTER → 2023-08-27 | Outpatient (CLI) | payer MEDICARE, BC | LOC: ZCOL.LAB 13:02 | DX: Z51.81 Encounter for therapeutic drug level monitoring (principal) ==

== ENCOUNTER → 2023-10-28 | Outpatient (CLI) | payer MEDICARE, BC ==
[2023-10-28 08:40] LABS: COLLECTION METHOD CLEAN CATCH
[2023-10-28 09:06] LABS: MUCOUS Present (NOT PRESENT); PH 5.5 (5.0-8.5); SQUAMOUS EPITHELIAL 0-2 /hpf (0-10); URINE APPEARANCE Hazy (CLEAR/HAZY); URINE BACTERIA Rare /hpf (NONE SEEN); URINE BLOOD Negative (NEGATIVE); URINE COLOR Yellow (YELLOW); URINE GLUCOSE Negative (NEGATIVE); URINE KETONE 1+ (NEGATIVE); URINE NITRATE Negative (NEGATIVE); URINE PROTEIN(semi-quant) Negative (NEGATIVE); URINE RBC 0-2 /hpf (0-2); URINE UROBILINOGEN 0.2 E.U/dL (0.2-1.0)
[2023-10-28 10:41] LABS: BASO % 0.7 % (0.0-2.0); EOS # 0.2 K/mm3 (0.0-0.7); EOS % 3.4 % (0.0-4.0); GRAN # 3.8 K/mm3 (1.4-6.5); GRAN % 63.3 % (42.2-75.2); HEMOGLOBIN 11.6 g/dl (13.5-18.0); LYMPH # 1.3 K/mm3 (1.2-3.4); LYMPH % 22.5 % (20.0-51.0); MEAN CELL VOLUME 92 fl (80.0-100.0); MEAN CORPUSCULAR HEMOGLOBIN 30 pg (27-31); MEAN CORPUSCULAR HGB CONC 33 g/dl (33.0-37.0); MEAN PLATELET VOLUME 10.9 fl (7.4-10.4); MONO # 0.6 K/mm3 (0.1-0.6); MONO % 9.8 % (1.7-9.3); PLATELET COUNT 153 K/mm3 (130-400); RED BLOOD COUNT 3.89 M/mm3 (4.20-5.60); REDCELL DISTRIBUTION WIDTH-CV 14.1 % (11.5-14.5)
[2023-10-28 10:45] LABS: HEMATOCRIT 35.7 % (42.0-52.0)
[2023-10-28 11:19] LABS: ALBUMIN 4.3 gm/dL (3.4-4.8); ALKALINE PHOSPHATASE 85 U/L (40-150); ANION GAP 14 mmol/L (7-16); AST,SGOT 12 U/L (5-34); BILIRUBIN,TOTAL 0.8 mg/dL (0.2-1.2); BLOOD UREA NITROGEN 26 mg/dL (8-26); CALCIUM 9.5 mg/dL (8.4-10.2); CARBON DIOXIDE 24 mmol/L (23-31); CHLORIDE 101 mmol/L (98-107); CREATININE, serum 1.14 mg/dL (0.72-1.25); GLUCOSE 99 mg/dL (70-99); POTASSIUM 4.5 mmol/L (3.5-4.5); SODIUM 139 mmol/L (136-145); TOTAL PROTEIN 6.9 gm/dL (6.2-8.1)
[2023-10-28 11:21] LABS: ALANINE AMINOTRANSFERASE < 6 U/L (0-55)
== END ==
LOC: ZCOL.LAB 08:39
PROVIDERS: Internal Medicine
DX: G20.B2 Parkinson's disease with dyskinesia, with fluctuations (principal)